=== PATIENT | female | born 1995 | race Caucasian/White ===

== ENCOUNTER 2017-07-20 19:56 | Outpatient (CLI) | payer OTHER ==
[2017-07-20] MEDS: LACTATED RINGER'S 1,000 ML IV ×2 (21:36→22:12)
[2017-07-20] MEDS: TERBUTALINE 1 MG/ML INJ SC (21:37)
[2017-07-20 22:14] LABS: ADD UMIC YES; UR ASCORBIC ACID NEGATIVE (NEGATIVE); UR BACTERIA MODERATE /HPF (NONE SEEN); UR BILIRUBIN (Dip) NEGATIVE (NEGATIVE); UR BLOOD (Dip) NEGATIVE (NEGATIVE); UR CALCIUM OXALATE CRYSTAL MANY /HPF (NONE SEEN); UR CLARITY CLOUDY (CLEAR); UR COLOR AMBER (YELLOW); UR GLUCOSE (Dip) NEGATIVE (NEGATIVE); UR KETONES (Dip) NEGATIVE (NEGATIVE); UR LEUKOCYTE ESTERASE (Dip) 3+ Leu/ul (NEGATIVE); UR NITRITE (Dip) NEGATIVE (NEGATIVE); UR RBC 15 /HPF (0-5); UR SPECIFIC GRAVITY (Dip) 1.015 (1.003-1.030); UR SQUAMOUS EPITHELIAL CELL MANY /HPF (FEW); UR TOTAL PROTEIN (Dip) NEGATIVE (NEGATIVE); UR UROBILINOGEN (Dip) NEGATIVE (NEGATIVE); UR WBC 17 /HPF (0-5)
[2017-07-20 22:18] LABS: ADD MAN DIFF? NO
[2017-07-20 22:20] LABS: BASOPHILS % 0.3 % (0.0-2.0); EOSINOPHILS # 0.1 10^3/ul (0.0-0.5); EOSINOPHILS % 0.7 % (0.0-7.0); HEMATOCRIT 36.4 % (37.0-47.0); HEMOGLOBIN 13.4 g/dl (12.0-16.0); LYMPHOCYTES # 1.7 10^3/ul (0.8-2.9); LYMPHOCYTES % 17.3 % (15.0-51.0); MEAN CORPUSCULAR HEMOGLOBIN 30.7 pg (29.0-33.0); MEAN CORPUSCULAR HGB CONC 36.8 g/dl (32.0-37.0); MEAN CORPUSCULAR VOLUME 83.5 fl (82.0-101.0); MEAN PLATELET VOLUME 11.9 fl (7.4-10.4); MONOCYTE # 0.5 10^3/ul (0.3-0.9); MONOCYTES % 5.2 % (0.0-11.0); NEUTROPHIL # 7.6 10^3/ul (1.6-7.5); NEUTROPHILS % 76.1 % (39.0-77.0); PLATELET COUNT 273 10^3/UL (140-415); RED BLOOD COUNT 4.36 10^6/ul (4.20-5.40); RED CELL DISTRIBUTION WIDTH 13.3 % (11.5-14.5)
[2017-07-20 22:20] LABS: WHITE BLOOD COUNT 9.9 10^3/ul (4.8-10.8)
== END 2017-07-20 23:11 | disposition home or self-care (01) ==
LOC: OBT 19:56 → L-D 19:58 → OBT 23:11
DX: O36.8130 Decreased fetal movements, third trimester, not applicable or unspecified (principal); Z3A.35 35 weeks gestation of pregnancy
CPT/HCPCS: 36415; 76818; 81001; 85025; 96365; 96372

== ENCOUNTER 2017-08-03 22:36 | Outpatient (CLI) | payer OTHER | END 2017-08-04 03:50 | disposition home or self-care (01) | LOC: OBT 22:36 → L-D 22:37 | DX: O62.9 Abnormality of forces of labor, unspecified (principal); Z3A.37 37 weeks gestation of pregnancy | CPT/HCPCS: 93970 ==

== ENCOUNTER 2017-08-09 16:31 | Outpatient (CLI) | payer OTHER ==
[2017-08-09 20:24] LABS: RUPTURE FETAL MEMBRANES NEGATIVE (NEGATIVE)
== END 2017-08-09 20:55 | disposition home or self-care (01) ==
LOC: OBT 16:31 → L-D 16:33 → OBT 20:55
DX: O28.0 Abnormal hematological finding on antenatal screening of mother (principal); Z3A.38 38 weeks gestation of pregnancy
CPT/HCPCS: 76818; 84112

== ENCOUNTER 2017-08-11 13:23 | Inpatient (IN) | payer OTHER ==
[2017-08-11] MEDS: LACTATED RINGER'S 1,000 ML IV ×2 (17:05→20:16)
[2017-08-11] MEDS ORDERED: MISOPROSTOL 200 MCG TAB PR (20:30)
[2017-08-11] MEDS ORDERED: LIDOCAINE 1% (MPF) 30 ML INJ INJ (20:30)
[2017-08-11] MEDS ORDERED: BUTORPHANOL 2 MG INJ IV (20:30)
[2017-08-11] MEDS ORDERED: CARBOPROST 250 MCG INJ IM (20:30)
[2017-08-11] MEDS ORDERED: METHYLERGONOVINE 0.2 MG INJ IM (20:30)
[2017-08-11] MEDS ORDERED: IBUPROFEN 600 MG TAB PO (20:30)
[2017-08-11] MEDS ORDERED: OXYTOCIN 30 UNITS/LR 500 ML IV (20:30)
[2017-08-11] MEDS ORDERED: AMPICILLIN 2 GM/NS (PMX) 100 ML IV (20:30)
[2017-08-11 21:04] LABS: ADD MAN DIFF? NO
[2017-08-11 21:09] LABS: BASOPHILS % 0.3 % (0.0-2.0); EOSINOPHILS # 0.1 10^3/ul (0.0-0.5); EOSINOPHILS % 0.5 % (0.0-7.0); HEMOGLOBIN 13.7 g/dl (12.0-16.0); LYMPHOCYTES # 1.9 10^3/ul (0.8-2.9); LYMPHOCYTES % 14.4 % (15.0-51.0); MEAN CORPUSCULAR HEMOGLOBIN 30.4 pg (29.0-33.0); MEAN CORPUSCULAR HGB CONC 36.1 g/dl (32.0-37.0); MEAN CORPUSCULAR VOLUME 84.3 fl (82.0-101.0); MEAN PLATELET VOLUME 11.5 fl (7.4-10.4); MONOCYTE # 0.6 10^3/ul (0.3-0.9); MONOCYTES % 4.5 % (0.0-11.0); NEUTROPHIL # 10.4 10^3/ul (1.6-7.5); NEUTROPHILS % 79.8 % (39.0-77.0); PLATELET COUNT 247 10^3/UL (140-415); RED BLOOD COUNT 4.51 10^6/ul (4.20-5.40); RED CELL DISTRIBUTION WIDTH 13.8 % (11.5-14.5)
[2017-08-11 21:30] LABS: INR 0.97; PARTIAL THROMBOPLASTIN TIME 28.2 Sec (25.0-35.0)
[2017-08-11 21:57] LABS: HEPATITIS B SURFACE ANTIGEN NEGATIVE (NEGATIVE)
[2017-08-12] MEDS ORDERED: AMPICILLIN 1 GM/NS (PMX) 50 ML IV (00:30)
[2017-08-12] MEDS: LACTATED RINGER'S 1,000 ML IV ×5 (02:10→19:04)
[2017-08-12] MEDS: OXYTOCIN 30 UNITS/LR 500 ML IV ×3 (03:11→15:59)
[2017-08-12] MEDS ORDERED: OXYTOCIN 30 UNITS/LR 500 ML BAG IV (07:00)
[2017-08-12] MEDS ORDERED: CARBOPROST 250 MCG INJ IM ×2 (13:00→18:00)
[2017-08-12] MEDS ORDERED: MISOPROSTOL 200 MCG TAB PR ×2 (13:00→18:00)
[2017-08-12] MEDS ORDERED: LIDOCAINE 1% (MPF) 30 ML INJ INJ (13:00)
[2017-08-12] MEDS ORDERED: OXYTOCIN 30 UNITS/LR 500 ML IV ×4 (13:00→18:00)
[2017-08-12] MEDS: CEFAZOLIN 2 GM/50 ML (PMX) 50 ML IV ×2 (13:00→22:26)
[2017-08-12] MEDS ORDERED: METHYLERGONOVINE 0.2 MG INJ IM ×2 (13:00→18:00)
[2017-08-12] MEDS ORDERED: morphine SULFATE/PF (10 MG/10 ML) INJ (14:14)
[2017-08-12] MEDS ORDERED: PHENYLephrine (100 MCG/ML) 5ML SYG (14:14)
[2017-08-12] MEDS ORDERED: FENTAnyl 50 MCG/ML VIAL (14:14)
[2017-08-12] MEDS ORDERED: BUPIVACAINE 0.75%/DEXT (SPINAL) 2 ML INJ (14:15)
[2017-08-12] MEDS ORDERED: FAMOTIDINE 20 MG INJ (14:33)
[2017-08-12] MEDS ORDERED: ONDANSETRON 4 MG INJ (14:33)
[2017-08-12] MEDS ORDERED: DEXAMETHASONE 4 MG/ML 1 ML INJ (14:33)
[2017-08-12 15:11] LABS: RAPID PLASMA REAGIN NONREACTIVE (NR)
[2017-08-12] MEDS ORDERED: ONDANSETRON 4 MG INJ IV (16:00)
[2017-08-12] MEDS ORDERED: HYDROmorphONE 0.5 MG/0.5 ML SYG IV (16:00)
[2017-08-12] MEDS ORDERED: ZOLPIDEM 5 MG TAB PO (16:00)
[2017-08-12] MEDS ORDERED: NALOXONE (0.4 MG/ML) INJ IV (16:00)
[2017-08-12] MEDS ORDERED: DIPHENHYDRAMINE 50 MG INJ IV (16:00)
[2017-08-12] MEDS: KETOROLAC 30 MG INJ IV (17:07)
[2017-08-12] MEDS: CLINDAMYCIN 300 MG CAP PO (18:00)
[2017-08-12] MEDS ORDERED: NA PHOSPHATE/BIPHOS 133 ML ENEMA PR (18:00)
[2017-08-12] MEDS ORDERED: CEFAZOLIN 2 GM/50 ML (PMX) 50 ML IV (18:00)
[2017-08-12] MEDS ORDERED: HYDROCODONE/APAP (5/325) TAB PO (18:00)
[2017-08-12] MEDS: HYDROmorphONE 0.5 MG/0.5 ML SYG IV (20:54)
[2017-08-12] MEDS: SENNA/DOCUSATE NA (8.6MG/50MG) TAB PO (21:00)
[2017-08-13] MEDS: LACTATED RINGER'S 1,000 ML IV ×2 (00:24→09:43)
[2017-08-13] MEDS: CLINDAMYCIN 300 MG CAP PO ×5 (00:37→23:56)
[2017-08-13] MEDS: KETOROLAC 30 MG INJ IV ×2 (06:10→12:21)
[2017-08-13] MEDS: CEFAZOLIN 2 GM/50 ML (PMX) 50 ML IV ×2 (06:15→14:14)
[2017-08-13] MEDS: LANOLIN 7 GM TUBE TOP (08:34)
[2017-08-13] MEDS: SENNA/DOCUSATE NA (8.6MG/50MG) TAB PO ×2 (08:34→21:31)
[2017-08-13 09:14] LABS: ADD MAN DIFF? NO
[2017-08-13 09:19] LABS: BASOPHILS % 0.2 % (0.0-2.0); EOSINOPHILS % 0.2 % (0.0-7.0); HEMATOCRIT 31.3 % (37.0-47.0); HEMOGLOBIN 11.3 g/dl (12.0-16.0); LYMPHOCYTES # 2.9 10^3/ul (0.8-2.9); LYMPHOCYTES % 17.2 % (15.0-51.0); MEAN CORPUSCULAR HEMOGLOBIN 30.6 pg (29.0-33.0); MEAN CORPUSCULAR HGB CONC 36.1 g/dl (32.0-37.0); MEAN CORPUSCULAR VOLUME 84.8 fl (82.0-101.0); MEAN PLATELET VOLUME 11.5 fl (7.4-10.4); MONOCYTE # 0.9 10^3/ul (0.3-0.9); MONOCYTES % 5.5 % (0.0-11.0); NEUTROPHIL # 12.6 10^3/ul (1.6-7.5); NEUTROPHILS % 76.4 % (39.0-77.0); PLATELET COUNT 216 10^3/UL (140-415); RED BLOOD COUNT 3.69 10^6/ul (4.20-5.40); RED CELL DISTRIBUTION WIDTH 13.3 % (11.5-14.5)
[2017-08-13 09:19] LABS: WHITE BLOOD COUNT 16.5 10^3/ul (4.8-10.8)
[2017-08-13] MEDS: BISACODYL 10 MG SUPP PR (12:21)
[2017-08-13] MEDS: IBUPROFEN 800 MG TAB PO ×2 (14:00→21:31)
[2017-08-13] MEDS: OXYCODONE/ACETAMINOPHEN (5/325) TAB PO (14:17)
[2017-08-14] MEDS: IBUPROFEN 800 MG TAB PO ×3 (05:26→21:30)
[2017-08-14] MEDS: CLINDAMYCIN 300 MG CAP PO ×4 (05:26→23:49)
[2017-08-14 08:41] LABS: ADD MAN DIFF? NO
[2017-08-14 08:45] LABS: WHITE BLOOD COUNT 10.9 10^3/ul (4.8-10.8)
[2017-08-14 08:45] LABS: BASOPHILS % 0.2 % (0.0-2.0); EOSINOPHILS # 0.1 10^3/ul (0.0-0.5); EOSINOPHILS % 1.1 % (0.0-7.0); HEMATOCRIT 33.4 % (37.0-47.0); LYMPHOCYTES # 1.8 10^3/ul (0.8-2.9); LYMPHOCYTES % 16.5 % (15.0-51.0); MEAN CORPUSCULAR HEMOGLOBIN 30.7 pg (29.0-33.0); MEAN CORPUSCULAR HGB CONC 35.9 g/dl (32.0-37.0); MEAN CORPUSCULAR VOLUME 85.4 fl (82.0-101.0); MEAN PLATELET VOLUME 11.3 fl (7.4-10.4); MONOCYTE # 0.5 10^3/ul (0.3-0.9); MONOCYTES % 4.3 % (0.0-11.0); NEUTROPHIL # 8.4 10^3/ul (1.6-7.5); NEUTROPHILS % 77.2 % (39.0-77.0); PLATELET COUNT 220 10^3/UL (140-415); RED BLOOD COUNT 3.91 10^6/ul (4.20-5.40); RED CELL DISTRIBUTION WIDTH 13.8 % (11.5-14.5)
[2017-08-14] MEDS: SENNA/DOCUSATE NA (8.6MG/50MG) TAB PO ×2 (09:09→21:30)
[2017-08-14] MEDS: OXYCODONE/ACETAMINOPHEN (5/325) TAB PO (12:28)
[2017-08-15] MEDS: CLINDAMYCIN 300 MG CAP PO ×2 (05:43→11:53)
[2017-08-15] MEDS: IBUPROFEN 800 MG TAB PO ×2 (05:43→14:13)
[2017-08-15] MEDS: SENNA/DOCUSATE NA (8.6MG/50MG) TAB PO (08:44)
[2017-08-15] MEDS: DIPHTH/TET/ACEL PERTUSS (ADULT) 0.5 ML VIAL IM* (09:00)
[2017-08-15] MEDS: MEASLES,MUMPS,RUBELLA VACCINE INJ SC* (09:00)
[2017-08-15] MEDS: OXYCODONE/ACETAMINOPHEN (5/325) TAB PO (10:07)
[2017-08-15 13:31] LABS: ADD MAN DIFF? NO
[2017-08-15 13:34] LABS: BASOPHILS % 0.2 % (0.0-2.0); EOSINOPHILS # 0.4 10^3/ul (0.0-0.5); HEMATOCRIT 34.2 % (37.0-47.0); LYMPHOCYTES # 1.4 10^3/ul (0.8-2.9); LYMPHOCYTES % 11.1 % (15.0-51.0); MEAN CORPUSCULAR HEMOGLOBIN 30.3 pg (29.0-33.0); MEAN CORPUSCULAR HGB CONC 35.1 g/dl (32.0-37.0); MEAN CORPUSCULAR VOLUME 86.4 fl (82.0-101.0); MEAN PLATELET VOLUME 11.7 fl (7.4-10.4); MONOCYTE # 0.6 10^3/ul (0.3-0.9); MONOCYTES % 4.7 % (0.0-11.0); NEUTROPHIL # 10.1 10^3/ul (1.6-7.5); NEUTROPHILS % 80.4 % (39.0-77.0); PLATELET COUNT 244 10^3/UL (140-415); RED BLOOD COUNT 3.96 10^6/ul (4.20-5.40); RED CELL DISTRIBUTION WIDTH 13.8 % (11.5-14.5)
[2017-08-15 13:34] LABS: WHITE BLOOD COUNT 12.5 10^3/ul (4.8-10.8)
[2017-08-15] MEDS ORDERED: CIPROFLOXACIN 500 MG TAB PO (18:00)
[2017-08-15] MEDS ORDERED: TRIMETHOPRIM/SULFAMETHOX (DS) TAB PO (21:00)
== END 2017-08-15 15:42 | disposition home or self-care (01) | DRG 766 ==
LOC: OBT 13:23 → L-D 08-12 13:58 → PP1 08-12 17:36 → OBT 20:40 → L-D 20:10
PROVIDERS: Obstetrics & Gynecology
PROC: 4A1HXCZ Monitoring of Products of Conception, Cardiac Rate, External Approach (ICD-10-PCS; 2017-08-11)
PROC: 10D00Z1 Extraction of Products of Conception, Low, Open Approach (ICD-10-PCS; principal; 2017-08-12)
DX: O32.8XX0 Maternal care for other malpresentation of fetus, not applicable or unspecified (principal); Z3A.39 39 weeks gestation of pregnancy; Z37.0 Single live birth
CPT/HCPCS: 36415; 76818; 85025; 85610; 85730; 86592; 86850; 86900; 86901; 87340; 96361; 99464